=== PATIENT | female | born 1995 | race Caucasian/White ===

== ENCOUNTER 2017-01-28 12:59 | Emergency (ER) | payer MEDICAID, OTHER ==
[2017-01-28 13:37] VITALS: BP 111/79
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
== END 2017-01-28 13:45 | disposition home or self-care (01) ==
LOC: JD.ED 12:59
DX: S06.0X0A Concussion without loss of consciousness, initial encounter (principal); V89.2XXA Person injured in unspecified motor-vehicle accident, traffic, initial encounter; Z88.0 Allergy status to penicillin
CPT/HCPCS: 99282; 99284

== ENCOUNTER 2017-05-21 15:21 | Emergency (ER) | payer MEDICAID, OTHER ==
[2017-05-21] MEDS ORDERED: Sodium Chloride 0.9% 1,000 ML ONE (15:34)
[2017-05-21] MEDS ORDERED: Lactated Ringers 2,000 ML IV ONE (15:56)
[2017-05-21] MEDS ORDERED: Midazolam 1 MG/ML 2 ML SDV IVPUSH ONE (15:58)
[2017-05-21] MEDS ORDERED: Water For Injection, Sterile 10 ML SDV ONE (16:00)
[2017-05-21] MEDS ORDERED: Midazolam 1 MG/ML 5 ML SDV ONE (16:00)
[2017-05-21] MEDS ORDERED: Sodium Chloride 0.9% 1,000 ML IV ONE (16:01)
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
[2017-05-21] MEDS ORDERED: Sodium Chloride 0.9% 10 ML Syringe FLUSH PRN (16:25)
[2017-05-21] MEDS ORDERED: Iopamidol 612 MG/ML 150 ML Bottle IVPUSH ONE (16:25)
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
--- NOTE | 2017-05-21 16:52 | PCM.OPNOTE ---
- General Post-Op/Procedure Note Date of Surgery/Procedure: 05/21/17 Operative Procedure(s): Left tube thoracostomy with a 32 Georgian straight tube Findings: widened mediastinum with desaturation Pre Op Diagnosis: Hemodynamic instability with blunt trauma and significant compression atelectasis in the left hemithorax with possible left hemothorax Post-Op Diagnosis: Same Anesthesia Technique: Local Primary Surgeon: Steven Callejas Pathology: None EBL in mLs: 2 Complications: None Condition: Critical Free Text/Narrative:: The patient's left lateral chest wall was prepped with Betadine and then draped with field towels sterilely. 5 mL of 1% lidocaine was infused into the fourth intercostal space at the anterior axillary line and inframammary crease. A 10 blade was used to make an incision through the skin and subcutaneous tissues down to the intercostal space. A small incision was made in the intercostal musculature but followed by spreading with a Jane clamp. There was no wynne of air or blood. Finger digitalization for exploration revealed satisfactory entry into the chest. A 32 Georgian chest tube was inserted towards the apex of the lung. The chest tube was secured to the skin with a suture. after placement of the tube on suction there was no airleak and minimal drainage. the area was dressed with gauze and the tube was secured with silk tape. the chest wall and abdomen. The patient tolerated the procedure well and there was no hemodynamic instability.
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
--- NOTE | 2017-05-22 08:06 | CT ---
Head CT Technique: Multiple axial sections through the brain were obtained. Intravenous contrast was not utilized. Comparison: No previous intracranial imaging. Findings: Motion artifact is seen. Within this limitation, no abnormal parenchymal densities are seen. No evidence of intracranial hemorrhage. No midline shift or mass effect is appreciated. Diffuse soft tissue swelling and contusion seen within the frontal scalp on both sides. Findings continue into the left periorbital region. Bone window settings show mild mucosal thickening within the ethmoid sinuses which is felt to be incidental. No acute calvarial abnormality is appreciated. Impression: 1. Motion artifact. 2. Bifrontal scalp contusion/hematoma with extension of soft tissue swelling within the left periorbital region. 3. No acute intracranial abnormality is definitely seen. No acute skull fracture is appreciated. Diagnostic code #3 I agree with preliminary report issued by [facility] ([facility] report finalized on 05/21/17, 5:38 PM Central Time)
--- NOTE | 2017-05-22 08:06 | CT ---
CT cervical spine Technique: Multiple axial sections were obtained from above C1 inferiorly inferiorly through T2. Reconstructed sagittal and coronal images were reviewed. Findings: Endotracheal tube and nasogastric tube are partially visualized. Mastoid sinuses and middle ear cavities are clear. Posterior skull base is intact. Vertebral body heights and disc spaces are preserved. Vertebral bodies and posterior arches show no fracture. Fracture identified within the right first rib. No abnormal subluxation is seen. Soft tissue density noted within the left upper chest presumably due to pulmonary contusion. Left-sided pneumothorax is also partially visualized. Small amount of soft tissue air noted within the left supraclavicular region. Impression: 1. Fracture within the right first rib. 2. Pulmonary contusion within the left upper chest with left-sided pneumothorax partially visualized. 3. Nothing acute is seen within the cervical spine. 4. Small amount of soft tissue air within the left supraclavicular region. Diagnostic code #5 I agree with preliminary report issued by [facility] ([facility] report finalized on 05/21/17, 5:49 PM Central Time)
--- NOTE | 2017-05-22 08:06 | CR ---
Chest: Portable view of the chest was obtained. Comparison: No prior chest x-ray. Haziness is noted within both lungs. Hyperlucency noted to the left chest compatible with pneumothorax being located anteriorly. Endotracheal tube is seen with tip lying at the origin of the right mainstem bronchus. Nasogastric tube courses into the stomach. No gross bony abnormality is seen. Impression: 1. Left-sided pneumothorax. Haziness within both lungs presumably representing ill-defined pulmonary contusions. 2. Tip of endotracheal tube in the beginning of the right mainstem bronchus. Satisfactory position of nasogastric tube. Diagnostic code #3
--- NOTE | 2017-05-22 08:36 | CT ---
CT lumbar spine Technique: Multiple axial sections through the lumbar spine were obtained. Reconstructed coronal and sagittal images were reviewed. Findings: Spondylolytic defects which appear chronic seen at L5-S1 with mild spondylolisthesis. No other findings of spondylolisthesis are seen within the lumbar spine. Fracture is identified within the transverse process of L3 which appears nondisplaced. No additional lumbar spine fracture is seen. Diastases is noted of the right sacroiliac joint with fracture along the iliac side of the right sacroiliac joint. No traumatic disc herniation is seen. Impression: 1. Diastases of the right sacroiliac joint with fracture along the iliac side of the right sacroiliac joint. 2. Spondylolytic defects with mild spondylolisthesis at L5-S1 which appear chronic. 3. Nondisplaced fracture within the left L3 transverse process. Diagnostic code #3 I agree with preliminary report issued by [facility] ([facility] report finalized on 05/21/17, 5:53 PM Central Time)
--- NOTE | 2017-05-22 08:40 | CT ---
CT chest Technique: Multiple axial sections through the chest were obtained. Intravenous contrast was utilized. Findings: Parenchymal densities are noted within the left upper and left lower lung compatible with atelectasis and pulmonary contusion. Patchy areas of pulmonary contusion are seen posteriorly within the right upper lung and right lower lung as well. Moderately large left sided pneumothorax is seen. Equivocal pneumothorax within the right lung base. Shift of the mediastinum to the left side is seen compatible with left-sided atelectasis. Opacified great vessels appear within normal limits. Tip of endotracheal tube is at the origin of the right mainstem bronchus. Nasogastric tube courses into the stomach. Fractures are identified within T5 and T6. There is dislocation of T5 on T6 in an anterior direction by almost 1 vertebral AP width measuring about 1.5 cm. This dislocation causes severe narrowing of the central canal with several posterior bony fragments mextending into the central canal in good location to cause thoracic cord injury. For further details, please see CT thoracic spine exam. Prominent soft tissue swelling is seen in a paravertebral location at T5-T6. Minimal nondisplaced fracture is suggested to the inferior manubrium. Fracture is seen within the right first rib. Fracture noted within the sixth rib on both sides at the costovertebral junction. Fracture is noted within the transverse process on the right side at T6-T8. Impression: 1. Tip of endotracheal tube at the origin of the right mainstem bronchus. 2. Moderately large right sided pneumothorax. 3. Areas of pulmonary contusion and significant atelectasis within the left chest. This causes shift of the mediastinum to the left side. 4. Patchy areas of pulmonary contusion within the right upper and right lower lungs. 3. Fracture dislocation of the thoracic spine at T5 on T6. Rib fractures and transverse process fractures as described above. Diagnostic code #5 I agree with preliminary report issued by [facility] ([facility] report finalized on 05/21/17, 5:57 PM Central Time) CT abdomen and pelvis Technique: Multiple axial sections were obtained from above the dome of the diaphragm inferiorly through the pubic symphysis. Intravenous contrast was utilized. No oral contrast has been given. Comparison: No previous study. Findings: Complex liver laceration is seen which extends to the dome of the liver as well as into the central portion of the liver. Laceration occurs around the hepatic veins and portal veins but I do not see any definite vascular involvement at this time. Mild amount of surrounding blood is seen around the liver. Overall this is a grade 4 hepatic injury. Complex fracture is seen within the spleen with surrounding blood. Fracture extends into the splenic hilum. Findings felt compatible with grade 3 injury. Pancreas is within normal limits. Gallbladder shows no calcified gallstones. Kidneys show symmetric contrast enhancement without hydronephrosis or mass. Aorta shows no aneurysmal dilatation. No retroperitoneal abnormalities are seen. No mesenteric abnormalities are seen. Fluid is seen within the pelvis felt compatible with blood. Nagel catheter is identified within the bladder. Small amount of air seen within the bladder compatible with instrumentation. Bone window settings were reviewed which show mild diastases of the right sacroiliac joint. Fracture noted within the superior right pubic ramus with small fracture fragment identified along the iliac side of the sacroiliac joint on the right side. Bilateral spondylolytic defects are seen at L5-S1 with mild spondylolisthesis. Fracture is identified to the left transverse process of L3. Impression: 1. Complex lacerations within the liver and spleen. Liver lesion felt compatible with grade 4 hepatic injury and splenic lesion felt compatible with grade 3 injury. 2. Blood is noted around the liver and spleen as well as blood within the pelvis. 3. Spondylolytic defects at L5-S1 with mild spondylolisthesis. 4. Fracture within the left transverse process of L3. Right superior pubic ramus fracture with diastases and fracture within the right sacroiliac joint. Diagnostic code #5 I agree with preliminary report issued by [employer] [facility] ([facility] report finalized on 05/21/17, 5:49 PM Central Time)
--- NOTE | 2017-05-22 08:42 | CT ---
CT thoracic spine Technique: Multiple axial sections through the thoracic spine were obtained. Reconstructed coronal and sagittal images were obtained. Findings: Fracture is identified with anterior wedging of T6. Fracture identified with the inferior endplate of T5. There is dislocation of T5 on T6 by almost one AP width of the vertebral body. Several bone fragments are seen into the central canal suggesting the possibility of thoracic cord injury. Displaced transverse process fractures are seen on the right side at T6, T7 and T8. Fracture noted within the first rib as well as the sixth rib at the costovertebral junction with mild displacement. Fracture is noted within the left seventh rib at the costovertebral junction with displacement. Significant surrounding soft tissue swelling/hematoma is seen within the paravertebral soft tissues. Impression: 1. Fracture and dislocation at T5 and T6. Bony fragments within the central canal suggests the possibility of thoracic cord injury. 2. Significant paravertebral soft tissue swelling/hematoma at T5-T6 within the posterior mediastinum. 3. Rib fractures as noted above. Transverse process fractures as noted above. Other findings described on chest CT not mentioned on current thoracic spine CT. Diagnostic code #5 I agree with preliminary report issued by [facility] ([facility] report finalized on 05/21/17, 5:39 PM Central Time)
--- NOTE | 2017-05-22 08:42 | CT ---
CT facial bones Technique: Multiple axial sections through the facial bones were obtained. Intravenous contrast not utilized. Findings: Soft tissue swelling seen around the left periorbital region. Right and left globes are symmetric. No facial bone fracture is seen. Endotracheal tube and nasogastric tube are partially seen. Mucosal thickening is seen within the left ethmoid sinus which is likely pre-existing. Impression: 1. Endotracheal tube and nasogastric tube. 2. Soft tissue swelling around the left periorbital region. 3. Nothing acute is seen on CT study of the facial bones. Diagnostic code #2 I agree with preliminary report issued by [facility] ([facility] report finalized on 05/21/17, 5:55 PM Central Time)
== END 2017-05-21 16:36 ==
LOC: EDBD 15:21 → MERGE 15:21 → JD.ED 15:21
DX: S27.0XXA Traumatic pneumothorax, initial encounter (principal); S22.43XA Multiple fractures of ribs, bilateral, initial encounter for closed fracture; S22.059A Unspecified fracture of T5-T6 vertebra, initial encounter for closed fracture; S09.90XA Unspecified injury of head, initial encounter; S32.591A Other specified fracture of right pubis, initial encounter for closed fracture; S00.83XA Contusion of other part of head, initial encounter; S00.81XA Abrasion of other part of head, initial encounter; S00.31XA Abrasion of nose, initial encounter; V58.6XXA Passenger in pick-up truck or van injured in noncollision transport accident in traffic accident, initial encounter; Y92.410 Unspecified street and highway as the place of occurrence of the external cause
CPT/HCPCS: 31500; 32551; 36415; 36600; 51702; 70450; 70486; 71010; 71260; 72125; 72128; 72131; 74177; 80053; 80306; 81001; 81025; 83690; 85025; 85730; 86850; 86900; 86901; 86922; 96360; 96361; 96374; 96375; 96376; 99291; G0390; G0480; J7050; P9016; Q9967; 36430; J2250; J3490

== ENCOUNTER 2017-08-07 19:17 | Emergency (ER) | payer MEDICAID ==
[2017-08-07] MEDS ORDERED: Sodium Chloride 0.9% 10 ML Syringe FLUSH PRN (19:35)
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
[2017-08-07 19:42] VITALS: BP 118/87
--- NOTE | 2017-08-08 13:02 | CT ---
Head CT Technique: Multiple axial sections through the brain were obtained. Intravenous contrast was not utilized. Comparison: Previous head CT study of 05/21/17. Findings: Ventricles along with basal cisterns and sulci over the convexities are within normal limits for the patient's age. Slight extra-axial density is seen within the left frontal region next to the interhemispheric fissure. This does not appear acute but may represent a very small old epidural hematoma. This finding measures about 3.5 cm in length and 5 mm in depth. Additional crescentic extra-axial density is seen more posteriorly within the right frontal lobe which has a thickness of about 3.2 mm and length of about 3.8 cm which is felt compatible with an old subdural hematoma. No acute intracranial hemorrhage is seen. No midline shift or mass effect is seen. Bone window settings were reviewed which show partially visualized mucosal thickening within the left maxillary sinus. No acute calvarial abnormality is seen. Impression: 1. Probable mucosal thickening within the left maxillary sinus. 2. Small extra-axial abnormalities within both frontal lobes felt compatible with small old epidural hematoma and a small old subdural hematoma. 3. No acute intracranial abnormality is seen. Diagnostic code #3 Agree with preliminary report issued by [employer] ([facility] preliminary report dictated on 08/07/17, 9:31 PM Central Time)
== END 2017-08-07 23:55 | disposition home or self-care (01) ==
LOC: JD.ED 19:17
DX: F12.90 Cannabis use, unspecified, uncomplicated (principal); Z88.0 Allergy status to penicillin; Z79.899 Other long term (current) drug therapy
CPT/HCPCS: 36415; 70450; 80053; 80306; 81001; 84443; 84703; 85025; 85610; 85730; 86140; 93005; 99285; G0480; J7050

== ENCOUNTER 2018-11-01 13:36 | Inpatient (IN) | payer MEDICAID ==
[2018-11-01] MEDS ORDERED: Sodium Chloride 0.9% 10 ML Syringe FLUSH PRN (14:03)
[2018-11-01] MEDS ORDERED: Sodium Chloride 0.9% 250 ML IV ONE (14:07)
--- NOTE | 2018-11-01 14:57 | CR ---
Chest: Frontal view of the chest is obtained utilizing portable technique. Comparison: No previous chest x-ray. Heart size and mediastinum are within normal limits. Spinal fixation rods are seen. Scoliosis is noted within the spine. Lungs are clear with no acute parenchymal change. Impression: 1. Incidental findings. Nothing acute is seen on portable chest x-ray. Diagnostic code #2
--- NOTE | 2018-11-01 14:57 | CT ---
Head CT Technique: Multiple axial sections through the brain were obtained. Intravenous contrast was not utilized. Comparison: Previous head CT study of 08/07/17. Findings: Ventricles along with basal cisterns and sulci over the convexities are within normal limits for the patient's age. Previous small subdural fluid collections seen on prior study have resolved in the interim. No abnormal parenchymal densities are seen. No evidence of acute intracranial hemorrhage. No midline shift or mass effect is seen. Lung window setting shows no acute calvarial abnormality. Visualized sinuses are clear. Impression: 1. Nothing acute is appreciated on noncontrast head CT. When compared to prior exam, previous subdural fluid collections have resolved. Diagnostic code #1
[2018-11-01] MEDS ORDERED: Sodium Chloride 0.9% 1,000 ML IV ONE (15:06)
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
[2018-11-01] MEDS ORDERED: Levofloxacin/Dextrose 5%-Water 750 MG in Premix Bag 1 BAG IV ONE (15:08)
[2018-11-01] MEDS ORDERED: Lactated Ringers 1,000 ML IV ONE (15:23)
[2018-11-01] MEDS: Sodium Chloride 0.9% 1,000 ML IV ONE ×2 (15:35→19:54)
[2018-11-01] MEDS ORDERED: Ondansetron 4 MG Tab.DIS PO PRN (18:18)
[2018-11-01] MEDS ORDERED: Bisacodyl 5 MG Tab PO PRN (18:18)
[2018-11-01] MEDS ORDERED: Acetaminophen 325 MG Tab PO PRN (18:18)
[2018-11-01] MEDS: Baclofen 10 MG Tab PO SCH (20:12)
[2018-11-01] MEDS: Gabapentin 600 MG Tab PO SCH (20:13)
[2018-11-01] MEDS: DULoxetine 30 MG Cap PO SCH (20:13)
[2018-11-01] MEDS: Gabapentin 100 MG Cap PO SCH (20:13)
[2018-11-01] MEDS: Lactated Ringers 1,000 ML IV SCH (20:14)
[2018-11-01] MEDS ORDERED: Ascorbic Acid 500 MG Tab PO ONE (20:18)
[2018-11-01] MEDS ORDERED: Cholecalciferol (Vitamin D3) 1,000 Unit Tab PO ONE (20:19)
[2018-11-01] MEDS ORDERED: Multivitamins,Therapeutic Tab PO ONE (20:22)
[2018-11-01] MEDS: Docusate Sodium 100 MG Cap PO SCH (20:48)
[2018-11-01] MEDS: Oxybutynin 5 MG Tab PO SCH (20:48)
[2018-11-01] MEDS ORDERED: Non-Formulary Medication 1 Each (Gabapentin 800 MG) PO SCH (21:00)
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
[2018-11-02] MEDS ORDERED: Oxybutynin 5 MG Tab PO SCH (09:00)
[2018-11-02] MEDS: DULoxetine 30 MG Cap PO SCH ×2 (09:12→20:56)
[2018-11-02] MEDS: Baclofen 10 MG Tab PO SCH ×4 (09:12→20:56)
[2018-11-02] MEDS: Ascorbic Acid 500 MG Tab PO SCH ×4 (09:12→20:55)
[2018-11-02] MEDS: Docusate Sodium 100 MG Cap PO SCH ×2 (09:12→20:55)
[2018-11-02] MEDS: Cholecalciferol (Vitamin D3) 1,000 Unit Tab PO SCH ×2 (09:12→20:56)
[2018-11-02] MEDS: Gabapentin 600 MG Tab PO SCH ×2 (09:13→20:55)
[2018-11-02] MEDS: Gabapentin 100 MG Cap PO SCH ×2 (09:13→20:56)
[2018-11-02] MEDS ORDERED: Magnesium Sulfate/Water 2 GM in Premix Bag 1 BAG IV ONE (11:00)
[2018-11-02] MEDS ORDERED: Potassium Chloride 20 MEQ Tab.ER PO ONE (12:17)
--- NOTE | 2018-11-02 14:11 | PCM.PN ---
- General Info Date of Service: 11/02/18 Admission Dx/Problem (Free Text): 11/02/18, feeling at her baseline, TnI elevated, discussed with patient and family, LA normal, continue abx. Functional Status: Reports: Pain Controlled - Review of Systems General: Denies: Fever, Weakness, Night Sweats HEENT: Denies: Ear Pain, Headaches Pulmonary: Denies: Shortness of Breath, Cough, Sputum Cardiovascular: Denies: Chest Pain, Palpitations Gastrointestinal: Denies: Abdominal Pain, Constipation, Diarrhea, Difficulty Swallowing Genitourinary: Denies: Dysuria, Burning, Pain Musculoskeletal: Denies: Neck Pain, Back Pain Skin: Denies: Cyanosis, Jaundice Neurological: Denies: Confusion, Headache, Seizure, Syncope Psychiatric: Denies: Depression, Anxiety, Suicidal Ideation - Patient Data Vitals - Most Recent: Last Vital Signs Temp 98.4 F 11/02/18 08:00 Pulse 63 11/02/18 08:00 Resp 19 11/02/18 08:00 BP 130/83 11/02/18 08:00 Pulse Ox 97 11/02/18 08:00 Weight - Most Recent: 116 lb 6.465 oz I&O - Last 24 Hours: Intake & Output 11/02/18 11/02/18 11/02/18 03:59 11:59 19:59 Intake Total 2201 Output Total 800 0 Balance -800 2201 Lab Results Last 24 Hours: Laboratory Results - last 24 hr 11/01/18 11/01/18 11/01/18 Range/Units 14:15 14:15 14:15 WBC 23.45 H (3.98-10.04) K/mm3 RBC 4.88 (3.98-5.22) M/mm3 Hgb 14.5 D (11.2-15.7) gm/L Hct 43.4 (34.1-44.9) % MCV 88.9 (79.4-94.8) fl MCH 29.7 (25.6-32.2) pg MCHC 33.4 (32.2-35.5) g/dl RDW Std Deviation 41.7 (36.4-46.3) fL Plt Count 287 (182-369) K/mm3 MPV 9.4 (9.4-12.3) fl Neut % (Auto) 88.2 H (34.0-71.1) % Lymph % (Auto) 5.3 L (19.3-51.7) % Bowie % (Auto) 5.8 (4.7-12.5) % Eos % (Auto) 0.1 L (0.7-5.8) Baso % (Auto) 0.3 (0.1-1.2) % Neut # (Auto) 20.72 H (1.56-6.13) K/mm3 Lymph # (Auto) 1.24 (1.18-3.74) K/mm3 Bowie # (Auto) 1.35 H (0.24-0.36) K/mm3 Eos # (Auto) 0.02 L (0.04-0.36) K/mm3 Baso # (Auto) 0.06 (0.01-0.08) K/mm3 Manual Slide Review Abnormal smear Sodium (136-145) mEq/L Potassium (3.5-5.1) mEq/L Chloride (98-107) mEq/L Carbon Dioxide (21-32) mEq/L Anion Gap (5-15) BUN (7-18) mg/dL Creatinine (0.55-1.02) mg/dL Est Cr Clr Drug Dosing mL/min Estimated GFR (MDRD) (>60) mL/min BUN/Creatinine Ratio (14-18) Glucose (74-106) mg/dL Lactic Acid (0.4-2.0) mmol/L Calcium (8.5-10.1) mg/dL Phosphorus (2.6-4.7) mg/dL Magnesium (1.8-2.4) mg/dl Total Bilirubin (0.2-1.0) mg/dL AST (15-37) U/L ALT (14-59) U/L Alkaline Phosphatase (46-116) U/L Troponin I (0.00-0.056) ng/mL C-Reactive Protein (<1.0) mg/dL Total Protein (6.4-8.2) g/dl Albumin (3.4-5.0) g/dl Globulin gm/dL Albumin/Globulin Ratio (1-2) Urine Color Traci H (Yellow) Urine Appearance Cloudy H (Clear) Urine pH 6.0 (5.0-8.0) Ur Specific [place] 1.015 (1.005-1.030) Urine Protein 2+ H (Negative) Urine Glucose (UA) Negative (Negative) Urine Ketones Negative (Negative) Urine Occult Blood 3+ H (Negative) Urine Nitrite Negative (Negative) Urine Bilirubin Negative (Negative) Urine Urobilinogen 0.2 (0.2-1.0) Ur Leukocyte Esterase 3+ H (Negative) Urine RBC 40-50 H (0-5) /hpf Urine WBC 50-75 H (0-5) /hpf Ur Squamous Epith Cells Not seen (0-5) /hpf Urine Bacteria Many H (FEW) /hpf Urine Mucus Not seen (FEW) /hpf Urine HCG, Qual (NEGATIVE) Urine Opiates Screen Negative (RLOCME=148) Ur Buprenorphine Scrn Negative (CUTOFF=10) Ur Oxycodone Screen Negative (WWH6IA=430) Urine Methadone Screen Negative (TSCLFK=031) Ur Propoxyphene Screen Negative (ANKVSA=737) Ur Barbiturates Screen Negative (BFFWLO=314) Ur Tricyclics Screen Negative (XKJPLQ=584) Ur Phencyclidine Scrn Negative (CUTOFF=25) Ur Amphetamine Screen Presumptive positive H (VXBMAK=286) U Methamphetamines Scrn Presumptive positive H (SOZZNJ=035) U Benzodiazepines Scrn Negative (CKHMXT=327) U Cocaine Metab Screen Negative (PKERVK=830) U Marijuana (THC) Screen Presumptive positive H (CUTOFF=50) Ethyl Alcohol (0.00) gm% 11/01/18 11/01/18 11/01/18 Range/Units 14:15 14:15 14:15 WBC (3.98-10.04) K/mm3 RBC (3.98-5.22) M/mm3 Hgb (11.2-15.7) gm/L Hct (34.1-44.9) % MCV (79.4-94.8) fl MCH (25.6-32.2) pg MCHC (32.2-35.5) g/dl RDW Std Deviation (36.4-46.3) fL Plt Count (182-369) K/mm3 MPV (9.4-12.3) fl Neut % (Auto) (34.0-71.1) % Lymph % (Auto) (19.3-51.7) % Bowie % (Auto) (4.7-12.5) % Eos % (Auto) (0.7-5.8) Baso % (Auto) (0.1-1.2) % Neut # (Auto) (1.56-6.13) K/mm3 Lymph # (Auto) (1.18-3.74) K/mm3 Bowie # (Auto) (0.24-0.36) K/mm3 Eos # (Auto) (0.04-0.36) K/mm3 Baso # (Auto) (0.01-0.08) K/mm3 Manual Slide Review Sodium 142 (136-145) mEq/L Potassium 3.8 (3.5-5.1) mEq/L Chloride 108 H (98-107) mEq/L Carbon Dioxide 22 (21-32) mEq/L Anion Gap 15.8 H (5-15) BUN 17 (7-18) mg/dL Creatinine 0.7 (0.55-1.02) mg/dL Est Cr Clr Drug Dosing 104.69 mL/min Estimated GFR (MDRD) > 60 (>60) mL/min BUN/Creatinine Ratio 24.3 H (14-18) Glucose 94 (74-106) mg/dL Lactic Acid (0.4-2.0) mmol/L Calcium 8.6 (8.5-10.1) mg/dL Phosphorus (2.6-4.7) mg/dL Magnesium 1.7 L (1.8-2.4) mg/dl Total Bilirubin 0.3 (0.2-1.0) mg/dL AST 13 L (15-37) U/L ALT 10 L (14-59) U/L Alkaline Phosphatase 85 (46-116) U/L Troponin I 0.158 H* (0.00-0.056) ng/mL C-Reactive Protein 0.3 (<1.0) mg/dL Total Protein 6.6 (6.4-8.2) g/dl Albumin 3.3 L (3.4-5.0) g/dl Globulin 3.3 gm/dL Albumin/Globulin Ratio 1.0 (1-2) Urine Color (Yellow) Urine Appearance (Clear) Urine pH (5.0-8.0) Ur Specific [place] (1.005-1.030) Urine Protein (Negative) Urine Glucose (UA) (Negative) Urine Ketones (Negative) Urine Occult Blood (Negative) Urine Nitrite (Negative) Urine Bilirubin (Negative) Urine Urobilinogen (0.2-1.0) Ur Leukocyte Esterase (Negative) Urine RBC (0-5) /hpf Urine WBC (0-5) /hpf Ur Squamous Epith Cells (0-5) /hpf Urine Bacteria (FEW) /hpf Urine Mucus (FEW) /hpf Urine HCG, Qual (NEGATIVE) Urine Opiates Screen (BFYLPV=131) Ur Buprenorphine Scrn (CUTOFF=10) Ur Oxycodone Screen (XHC7UG=284) Urine Methadone Screen (RXFSXF=900) Ur Propoxyphene Screen (JKWRXN=917) Ur Barbiturates Screen (RYZSCX=293) Ur Tricyclics Screen (RBJXKX=911) Ur Phencyclidine Scrn (CUTOFF=25) Ur Amphetamine Screen (IBRYTB=924) U Methamphetamines Scrn (MFRASI=330) U Benzodiazepines Scrn (MHIMTC=390) U Cocaine Metab Screen (JZLMTO=857) U Marijuana (THC) Screen (CUTOFF=50) Ethyl Alcohol 0.00 (0.00) gm% 11/01/18 11/01/18 11/02/18 Range/Units 14:15 14:55 06:00 WBC 20.62 H (3.98-10.04) K/mm3 RBC 4.78 (3.98-5.22) M/mm3 Hgb 14.4 (11.2-15.7) gm/L Hct 42.7 (34.1-44.9) % MCV 89.3 (79.4-94.8) fl MCH 30.1 (25.6-32.2) pg MCHC 33.7 (32.2-35.5) g/dl RDW Std Deviation 42.0 (36.4-46.3) fL Plt Count 259 (182-369) K/mm3 MPV 10.1 (9.4-12.3) fl Neut % (Auto) 83.5 H (34.0-71.1) % Lymph % (Auto) 8.4 L (19.3-51.7) % Bowie % (Auto) 7.5 (4.7-12.5) % Eos % (Auto) 0.2 L (0.7-5.8) Baso % (Auto) 0.1 (0.1-1.2) % Neut # (Auto) 17.20 H (1.56-6.13) K/mm3 Lymph # (Auto) 1.73 (1.18-3.74) K/mm3 Bowie # (Auto) 1.55 H (0.24-0.36) K/mm3 Eos # (Auto) 0.05 (0.04-0.36) K/mm3 Baso # (Auto) 0.03 (0.01-0.08) K/mm3 Manual Slide Review Abnormal smear Sodium (136-145) mEq/L Potassium (3.5-5.1) mEq/L Chloride (98-107) mEq/L Carbon Dioxide (21-32) mEq/L Anion Gap (5-15) BUN (7-18) mg/dL Creatinine (0.55-1.02) mg/dL Est Cr Clr Drug Dosing mL/min Estimated GFR (MDRD) (>60) mL/min BUN/Creatinine Ratio (14-18) Glucose (74-106) mg/dL Lactic Acid 1.5 (0.4-2.0) mmol/L Calcium (8.5-10.1) mg/dL Phosphorus (2.6-4.7) mg/dL Magnesium (1.8-2.4) mg/dl Total Bilirubin (0.2-1.0) mg/dL AST (15-37) U/L ALT (14-59) U/L Alkaline Phosphatase (46-116) U/L Troponin I (0.00-0.056) ng/mL C-Reactive Protein (<1.0) mg/dL Total Protein (6.4-8.2) g/dl Albumin (3.4-5.0) g/dl Globulin gm/dL Albumin/Globulin Ratio (1-2) Urine Color (Yellow) Urine Appearance (Clear) Urine pH (5.0-8.0) Ur Specific [place] (1.005-1.030) Urine Protein (Negative) Urine Glucose (UA) (Negative) Urine Ketones (Negative) Urine Occult Blood (Negative) Urine Nitrite (Negative) Urine Bilirubin (Negative) Urine Urobilinogen (0.2-1.0) Ur Leukocyte Esterase (Negative) Urine RBC (0-5) /hpf Urine WBC (0-5) /hpf Ur Squamous Epith Cells (0-5) /hpf Urine Bacteria (FEW) /hpf Urine Mucus (FEW) /hpf Urine HCG, Qual Negative (NEGATIVE) Urine Opiates Screen (OOEMCE=494) Ur Buprenorphine Scrn (CUTOFF=10) Ur Oxycodone Screen (LOV0QS=371) Urine Methadone Screen (TSRLGG=238) Ur Propoxyphene Screen (EBBUNX=223) Ur Barbiturates Screen (DHDOSJ=645) Ur Tricyclics Screen (BHTSRF=883) Ur Phencyclidine Scrn (CUTOFF=25) Ur Amphetamine Screen (YWUVUK=375) U Methamphetamines Scrn (XMNRYV=943) U Benzodiazepines Scrn (OQOKOX=821) U Cocaine Metab Screen (QUFDAG=711) U Marijuana (THC) Screen (CUTOFF=50) Ethyl Alcohol (0.00) gm% 11/02/18 11/02/18 Range/Units 06:00 06:00 WBC (3.98-10.04) K/mm3 RBC (3.98-5.22) M/mm3 Hgb (11.2-15.7) gm/L Hct (34.1-44.9) % MCV (79.4-94.8) fl MCH (25.6-32.2) pg MCHC (32.2-35.5) g/dl RDW Std Deviation (36.4-46.3) fL Plt Count (182-369) K/mm3 MPV (9.4-12.3) fl Neut % (Auto) (34.0-71.1) % Lymph % (Auto) (19.3-51.7) % Bowie % (Auto) (4.7-12.5) % Eos % (Auto) (0.7-5.8) Baso % (Auto) (0.1-1.2) % Neut # (Auto) (1.56-6.13) K/mm3 Lymph # (Auto) (1.18-3.74) K/mm3 Bowie # (Auto) (0.24-0.36) K/mm3 Eos # (Auto) (0.04-0.36) K/mm3 Baso # (Auto) (0.01-0.08) K/mm3 Manual Slide Review Sodium 141 (136-145) mEq/L Potassium 3.6 (3.5-5.1) mEq/L Chloride 108 H (98-107) mEq/L Carbon Dioxide 20 L (21-32) mEq/L Anion Gap 16.6 H (5-15) BUN 12 (7-18) mg/dL Creatinine 0.7 (0.55-1.02) mg/dL Est Cr Clr Drug Dosing 95.93 mL/min Estimated GFR (MDRD) > 60 (>60) mL/min BUN/Creatinine Ratio 17.1 (14-18) Glucose 112 H (74-106) mg/dL Lactic Acid (0.4-2.0) mmol/L Calcium 8.7 (8.5-10.1) mg/dL Phosphorus 4.0 (2.6-4.7) mg/dL Magnesium 1.7 L (1.8-2.4) mg/dl Total Bilirubin 0.6 (0.2-1.0) mg/dL AST 16 (15-37) U/L ALT 19 (14-59) U/L Alkaline Phosphatase 90 (46-116) U/L Troponin I 0.209 H* (0.00-0.056) ng/mL C-Reactive Protein 7.8 H* (<1.0) mg/dL Total Protein 6.6 (6.4-8.2) g/dl Albumin 3.0 L (3.4-5.0) g/dl Globulin 3.6 gm/dL Albumin/Globulin Ratio 0.8 L (1-2) Urine Color (Yellow) Urine Appearance (Clear) Urine pH (5.0-8.0) Ur Specific [place] (1.005-1.030) Urine Protein (Negative) Urine Glucose (UA) (Negative) Urine Ketones (Negative) Urine Occult Blood (Negative) Urine Nitrite (Negative) Urine Bilirubin (Negative) Urine Urobilinogen (0.2-1.0) Ur Leukocyte Esterase (Negative) Urine RBC (0-5) /hpf Urine WBC (0-5) /hpf Ur Squamous Epith Cells (0-5) /hpf Urine Bacteria (FEW) /hpf Urine Mucus (FEW) /hpf Urine HCG, Qual (NEGATIVE) Urine Opiates Screen (NWASAL=335) Ur Buprenorphine Scrn (CUTOFF=10) Ur Oxycodone Screen (TFY9YJ=200) Urine Methadone Screen (SWXJAC=207) Ur Propoxyphene Screen (YEPVTH=521) Ur Barbiturates Screen (YCEFFC=099) Ur Tricyclics Screen (HIZKOQ=327) Ur Phencyclidine Scrn (CUTOFF=25) Ur Amphetamine Screen (QJBQSO=489) U Methamphetamines Scrn (DLVNWI=265) U Benzodiazepines Scrn (JVGBVC=209) U Cocaine Metab Screen (CTTJWR=138) U Marijuana (THC) Screen (CUTOFF=50) Ethyl Alcohol (0.00) gm% Fernando Results Last 24 Hours: Microbiology 11/01/18 14:15 Urine Culture - Preliminary Urine, Quick Cath (In-Out) Gram Negative Rods Med Orders - Current: Current Medications Acetaminophen (Tylenol) 650 mg PO Q4H PRN PRN Reason: Pain (Mild 1-3)/fever Ascorbic Acid (Vitamin C) 500 mg PO TID [facility] Last Admin: 11/02/18 09:12 Dose: 500 mg Baclofen (Lioresal) 20 mg PO QID [facility] Last Admin: 11/02/18 13:45 Dose: 20 mg Bisacodyl (Dulcolax) 5 mg PO DAILY PRN PRN Reason: Constipation Cholecalciferol (Vitamin D3) 500 units PO BID [facility] Last Admin: 11/02/18 09:12 Dose: 500 units Docusate Sodium (Colace) 100 mg PO BID [facility] Last Admin: 11/02/18 09:12 Dose: 100 mg Duloxetine HCl (Cymbalta) 60 mg PO BID [facility] Last Admin: 11/02/18 09:12 Dose: 60 mg Gabapentin (Neurontin) 600 mg PO BID [facility] Last Admin: 11/02/18 09:13 Dose: 600 mg Gabapentin (Neurontin) 200 mg PO BID [facility] Last Admin: 11/02/18 09:13 Dose: 200 mg Lactated Ringer's (Ringers, Lactated) 1,000 mls @ 125 mls/hr IV ASDIRECTED [facility] Last Admin: 11/01/18 20:14 Dose: 125 mls/hr Vancomycin HCl 1 gm/ Sodium (Chloride) 250 mls @ 250 mls/hr IV Q8H [facility] Last Admin: 11/02/18 12:03 Dose: 250 mls/hr Levofloxacin (Levaquin) 750 mg PO Q24H [facility] Multivitamins (Thera) 1 each PO BEDTIME [facility] Ondansetron HCl (Zofran Odt) 4 mg PO Q4H PRN PRN Reason: nausea, able to take PO Oxybutynin Chloride (Oxybutynin) 5 mg PO BEDTIME [facility] Last Admin: 11/01/18 20:48 Dose: 5 mg Sodium Chloride (Saline Flush) 10 ml FLUSH ASDIRECTED PRN PRN Reason: Keep Vein Open Last Admin: 11/01/18 14:38 Dose: 10 ml Vancomycin HCl (Pharmacy To Dose - Vancomycin) 0 dose .XX ASDIRECTED PRN PRN Reason: RX TO DOSE VANCO Discontinued Medications Ascorbic Acid (Vitamin C) 500 mg PO ONETIME ONE Stop: 11/01/18 20:19 Last Admin: 11/01/18 20:48 Dose: 500 mg Cholecalciferol (Vitamin D3) 500 units PO ONETIME ONE Stop: 11/01/18 20:20 Last Admin: 11/01/18 20:48 Dose: 500 units Sodium Chloride (Normal Saline) 250 mls @ 250 mls/hr IV ONETIME ONE Stop: 11/01/18 15:06 Last Admin: 11/01/18 14:39 Dose: 250 mls/hr Sodium Chloride (Normal Saline) 1,000 mls @ 999 mls/hr IV ONETIME ONE Stop: 11/01/18 16:06 Last Admin: 11/01/18 15:35 Dose: Not Given Levofloxacin/Dextrose 750 mg/ (Premix) 150 mls @ 100 mls/hr IV ONETIME ONE Stop: 11/01/18 16:37 Last Admin: 11/01/18 15:14 Dose: 100 mls/hr Sodium Chloride (Normal Saline) 1,000 mls @ 999 mls/hr IV ONETIME ONE Stop: 11/01/18 16:19 Last Admin: 11/01/18 19:54 Dose: Not Given Lactated Ringer's (Ringers, Lactated) 1,000 mls @ 999 mls/hr IV .BOLUS ONE Stop: 11/01/18 16:23 Last Admin: 11/01/18 15:32 Dose: 999 mls/hr Magnesium Sulfate 2 gm/ Premix 50 mls @ 25 mls/hr IV ONETIME ONE Stop: 11/02/18 12:59 Last Admin: 11/02/18 12:01 Dose: 25 mls/hr Multivitamins (Thera) 1 each PO ONETIME ONE Stop: 11/01/18 20:23 Last Admin: 11/01/18 20:48 Dose: 1 each Non-Formulary Medication (Gabapentin) 800 mg PO BID DANIKA Oxybutynin Chloride (Oxybutynin) 5 mg PO DAILY DANIKA Potassium Chloride (Klor-Con M20) 60 meq PO ONETIME ONE Stop: 11/02/18 12:18 Last Admin: 11/02/18 13:44 Dose: 60 meq - Exam General: Alert, Oriented, Cooperative, No Acute Distress HEENT: Pupils Equal, EOMI Neck: Supple, Trachea Midline Lungs: Clear to Auscultation, Normal Respiratory Effort Cardiovascular: Regular Rate, Regular Rhythm, No Murmurs, Gallops GI/Abdominal Exam: Normal Bowel Sounds, Soft, Non-Tender Extremities: No: Pedal Edema, Joint Swelling Peripheral Pulses: 2+: Dorsalis Pedis (L), Dorsalis Pedis (R) Skin: Warm, Dry, Intact Neurological: Cranial Nerves Intact, Other (paraplegic,level T1-T2) - Problem List Review Problem List Initiated/Reviewed/Updated: Yes - My Orders Last 24 Hours: My Active Orders 11/02/18 08:47 EKG Documentation Completion [RC] ASDIRECTED EKG 12 Lead [EK] Routine 11/02/18 12:20 Echo Comp wo Cont [US] Routine 11/02/18 14:00 TROPONIN I [CHEM] Routine - Plan Plan:: Sepsis * LR@125 mL an hour. * Continue Levaquin 750 mg daily * vancomycin, pharmacy to treat * LA normal UTI * Patient may need CT scan if she does not continue to improve. * Continue above antibiotics * CBC in the morning Polysubstance abuse * Consult social professionals CODE STATUS: Full code
[2018-11-02] MEDS ORDERED: Levofloxacin 750 MG Tab PO SCH ×2 (15:00→17:00)
[2018-11-02] MEDS: Lactated Ringers 1,000 ML IV SCH (15:48)
[2018-11-02] MEDS: Oxybutynin 5 MG Tab PO SCH (20:55)
[2018-11-02] MEDS ORDERED: Multivitamins,Therapeutic Tab PO SCH (21:00)
[2018-11-03] MEDS: Lactated Ringers 1,000 ML IV SCH (00:35)
[2018-11-03] MEDS ORDERED: Potassium Chloride 10% 20 MEQ/15 ML Soln 15 ML UD Cup PO ONE (08:00)
[2018-11-03 08:38] VITALS: BP 141/92
[2018-11-03] MEDS: DULoxetine 30 MG Cap PO SCH (08:51)
[2018-11-03] MEDS: Baclofen 10 MG Tab PO SCH ×2 (08:52→12:15)
[2018-11-03] MEDS: Docusate Sodium 100 MG Cap PO SCH (08:53)
[2018-11-03] MEDS: Cholecalciferol (Vitamin D3) 1,000 Unit Tab PO SCH (08:53)
[2018-11-03] MEDS: Ascorbic Acid 500 MG Tab PO SCH (08:53)
[2018-11-03] MEDS: Gabapentin 600 MG Tab PO SCH (08:54)
[2018-11-03] MEDS: Gabapentin 100 MG Cap PO SCH (08:54)
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
[2018-11-03] MEDS ORDERED: Levofloxacin 500 MG Tab PO SCH (17:00)
== END 2018-11-03 13:40 | disposition home or self-care (01) | DRG 698 ==
LOC: JD.ED 13:36 → JD.ICU 16:44 → JD.MS 11-03 07:57 → JD.ICU 11-03 08:00
PROVIDERS: ADMIT Family Medicine; ATTEND Family Medicine
DX: T83.518A Infection and inflammatory reaction due to other urinary catheter, initial encounter (principal); A41.9 Sepsis, unspecified organism; N39.0 Urinary tract infection, site not specified; G82.20 Paraplegia, unspecified; F19.20 Other psychoactive substance dependence, uncomplicated; R74.8 Abnormal levels of other serum enzymes; G62.9 Polyneuropathy, unspecified; Z87.820 Personal history of traumatic brain injury; Z88.0 Allergy status to penicillin; M54.9 Dorsalgia, unspecified; R51 Headache; R47.81 Slurred speech; R23.0 Cyanosis; R11.0 Nausea; R41.0 Disorientation, unspecified; Z91.040 Latex allergy status; Z79.899 Other long term (current) drug therapy; Y84.6 Urinary catheterization as the cause of abnormal reaction of the patient, or of later complication, without mention of misadventure at the time of the procedure
CPT/HCPCS: 36415; 70450; 71045; 80053; 80306; 81001; 81025; 83605; 83735; 84484; 85025; 86140; 87040 ×2; 87086; 87088; 87186; 93005; 96361; 96365; 99285; G0480; J1956; J7040; J7120; 80202; 82550; 84100; 93010; 93306; 99284; A9270-GY; J3370; J3475; J7050

== ENCOUNTER 2019-05-26 20:45 | Emergency (ER) | payer MEDICAID, SELFPAY ==
[2019-05-26] MEDS ORDERED: Sodium Chloride 0.9% 1,000 ML IV SCH (21:45)
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
[2019-05-26] MEDS ORDERED: Sodium Chloride 0.9% 1,000 ML IV ONE (23:10)
[2019-05-27] MEDS ORDERED: Cefepime 2 GM in Premix Bag 1 BAG IV ONE (00:02)
[2019-05-27] MEDS ORDERED: Levofloxacin/Dextrose 5%-Water 500 MG in Premix Bag 1 BAG IV ONE (00:09)
[2019-05-27] MEDS ORDERED: Sodium Chloride 0.9% 1,000 ML IV ONE (01:15)
[2019-05-27] MEDS ORDERED: Ibuprofen Susp 100 MG/5 ML 5 ML UD Cup PO ONE (01:15)
[2019-05-27 03:42] VITALS: BP 87/43; PULSE 89
--- NOTE | 2019-05-29 06:32 | CR ---
Chest: Portable view of the chest was obtained. Comparison: Prior chest x-ray of 11/01/18. Heart size and mediastinum are normal. Scoliosis noted within the spine. Spinal fixation rods are seen within the thoracic spine. Lungs are clear with no acute parenchymal change. Impression: 1. Spine findings which are stable. 2. Nothing acute is seen on portable chest x-ray. Diagnostic code #2 This report was dictated in [place] Standard Time
== END 2019-05-27 03:35 | disposition home or self-care (01) ==
LOC: JD.ED 20:45
DX: E86.0 Dehydration (principal); N30.00 Acute cystitis without hematuria; D72.829 Elevated white blood cell count, unspecified; Z88.0 Allergy status to penicillin; Z91.040 Latex allergy status; Z79.899 Other long term (current) drug therapy
CPT/HCPCS: 36415; 51702; 71045; 80053; 80306; 81001; 85025; 87040; 87086; 87088; 87186; 87804; 96361; 96365; 96368; 99284; A9270; J0692; J1956; J7030

== ENCOUNTER 2019-06-13 16:55 | Emergency (ER) | payer MEDICAID, SELFPAY ==
[2019-06-13 17:24] VITALS: BP 114/78; PULSE 136
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
== END 2019-06-13 18:10 | disposition home or self-care (01) ==
LOC: JD.ED 16:55
DX: Z46.6 Encounter for fitting and adjustment of urinary device (principal); Z91.040 Latex allergy status; Z88.0 Allergy status to penicillin
CPT/HCPCS: 99281; 99283

== ENCOUNTER 2019-08-11 18:23 | Emergency (ER) | payer MEDICAID, SELFPAY ==
[2019-08-11 18:49] VITALS: BP 103/66; PULSE 91
[2019-08-11] MEDS ORDERED: Lidocaine 1% 10 ML MDV INJECT ONE (19:34)
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
== END 2019-08-11 20:46 | disposition home or self-care (01) ==
LOC: JD.ED 18:23
DX: S61.411A Laceration without foreign body of right hand, initial encounter (principal); Z88.0 Allergy status to penicillin; Z91.040 Latex allergy status; Z79.899 Other long term (current) drug therapy; W26.8XXA Contact with other sharp object(s), not elsewhere classified, initial encounter
CPT/HCPCS: 12002; 99282; J2001

== ENCOUNTER 2019-11-11 05:39 | Emergency (ER) | payer MEDICAID ==
[2019-11-11 05:50] VITALS: BP 122/81; PULSE 131
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
== END 2019-11-11 07:35 | disposition home or self-care (01) ==
LOC: JD.ED 05:39
DX: F15.10 Other stimulant abuse, uncomplicated (principal); F12.90 Cannabis use, unspecified, uncomplicated; Z91.040 Latex allergy status; Z88.0 Allergy status to penicillin; Z79.899 Other long term (current) drug therapy
CPT/HCPCS: 93005; 93010; 99283; 99284-25

== ENCOUNTER 2020-01-24 08:07 | Day surgery (SDC) | payer MEDICAID ==
[~2020-01-24 08:07] MED LIST: Lactated Ringers 1,000 ML IV SCH; Lidocaine 1%/Sod Bicarbonate in NS 8.4% 1 ML Syringe IDERM PRN; Sodium Chloride 0.9% 10 ML Syringe FLUSH PRN
[2020-01-24] MEDS ORDERED: Ondansetron 4 MG/2 ML SDV ONE (08:12)
[2020-01-24] MEDS ORDERED: ceFAZolin 1 GM Vial ONE (08:12)
[2020-01-24] MEDS ORDERED: Propofol 200 MG/20 ML SDV ONE (08:12)
[2020-01-24] MEDS ORDERED: fentaNYL 100 MCG/2 ML SDV ONE (08:13)
[2020-01-24] MEDS ORDERED: Dexamethasone 4 MG/ML 5 ML MDV ONE (08:13)
[2020-01-24] MEDS ORDERED: Midazolam 1 MG/ML 2 ML SDV ONE (08:13)
[2020-01-24] MEDS ORDERED: Lidocaine 1% 4 ML ONE (08:13)
[2020-01-24] MEDS ORDERED: Ketamine 500 mg/10 ML MDV ONE (08:17)
--- NOTE | 2020-01-24 09:45 | PCM.OPNOTE ---
- General Post-Op/Procedure Note Date of Surgery/Procedure: 01/24/20 Operative Procedure(s): suction dilation and curettage Findings: normal uterus Pre Op Diagnosis: missed Post-Op Diagnosis: Same Anesthesia Technique: MAC Primary Surgeon: Yary Fatima Anesthesia Provider: Pattie Mendoza Fluid Replacement, Intraop: 700 Output, Urine Amount: 60 EBL in mLs: 10 Complications: None Condition: Good Free Text/Narrative:: Patient taken to OR. Prepped and draped in lithotomy position in velasquez stirrups. Speculum placed. Anterior lip of cervix grasped with single toothed tenaculum. Sequentially dilated to 9 dilator. 8 mm rigid curette used to evacuate contents of uterus. Polyp forceps used to tease some POCs from cervix. Additional pass with suction preformed. Good cry. Tenaculum removed. Good hemostasis maintained. taken to pacu in good condition for planned discharge home.
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
--- NOTE | 2020-01-24 10:03 | PCM.POSTAN ---
POST ANESTHESIA ASSESSMENT - MENTAL STATUS Mental Status: Alert, Oriented - VITAL SIGNS Vital Signs: Last Vital Signs Temp 36.6 C 01/24/20 09:48 Pulse 56 L 01/24/20 09:48 Resp 12 01/24/20 09:48 BP 94/58 L 01/24/20 09:48 Pulse Ox 95 01/24/20 09:48 - RESPIRATORY Respiratory Status: Respiratory Rate WNL, Airway Patent, O2 Saturation Stable, Supplemental Oxygen - CARDIOVASCULAR CV Status: Pulse Rate WNL, Blood Pressure Stable - GASTROINTESTINAL GI Status: No Symptoms - PAIN Pain Score: 0 - POST OP HYDRATION Hydration Status: Adequate & Stable
[2020-01-24 10:30] VITALS: BP 106/69; PULSE 97
== END 2020-01-24 10:47 | disposition home or self-care (01) ==
LOC: JD.SDS 08:07
PROVIDERS: ATTEND Obstetrics & Gynecology
DX: O02.89 Other abnormal products of conception (principal); F32.9 Major depressive disorder, single episode, unspecified; Z88.0 Allergy status to penicillin; Z91.040 Latex allergy status; Z87.891 Personal history of nicotine dependence; Z79.899 Other long term (current) drug therapy
CPT/HCPCS: 59820; J0690; J1100; J2001; J2250; J2405; J2704; J3010; J7120; 01965